=== PATIENT | female | born 1955 | race Caucasian/White ===

== ENCOUNTER 2017-01-02 14:40 | Emergency (ER) | payer OTHER ==
[2017-01-02 14:46] VITALS: RESP 18; O2SAT 96
[2017-01-02] MEDS ORDERED: ALTEPLASE 2 MG VIAL IVP PRN (15:38)
--- NOTE | 2017-01-02 16:28 | EDPHY ---
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 Patient states this she noticed that she had a nail infection a week ago. She was given a prescription for Keflex but told not to start it unless she develops signs of infection. She noticed some redness in her right forearm yesterday and started the Keflex at that time. The redness spread upper right arm. She was sent in by her doctor for evaluation of possible cellulitis failing oral antibiotics. Patient also was sent in for rule out of DVT. Denies any fevers or chills. No new numbness or weakness. Does states her arm is more swollen than normal. Otherwise feels in her normal state of health. ROS: 10 point Review of Systems is negative except as noted in the HPI. PMH: Breast cancer status post right axillary lymph node dissection chronic lymphedema Allergies: No known drug allergies Social History: No smoking, no alcohol, no recreational drug use Family History: non-contributory Physical Exam: Gen: Awake, Alert, No Distress HEENT: Nose: no rhinorrhea Eyes: PERRLA, EOMI Mouth: Moist mucosa Neck: Supple, no JVD Ext: She has right arm 2+ edema with erythema on the volar aspect of her right forearm with streaking up to her right upper arm. It is warm to the touch. It is mildly tender. Skin: See right forearm Neuro: CN II-XII intact, Sensation grossly intact, Strength 5/5 in bilateral upper and lower extremities - Personal History Current Tetanus/Diphtheria Vaccine: Yes Current Tetanus Diphtheria and Acellular Pertussis (TDAP): Yes Tetanus Vaccine Date: < 10 - Medical/Surgical History Hx Asthma: No Hx Chronic Respiratory Disease: Yes Hx Diabetes: Yes Hx Cardiac Disease: No Hx Renal Disease: No Hx Cirrhosis: No Hx Alcoholism: No Hx HIV/AIDS: No Hx Splenectomy or Spleen Trauma: No Other PMH: BREAST CA, R MASTECTOMY, HTN, THRYOID, ARTHRITIS. Possible metastasis of CA to bone per Son, bowel resection, GI hemorrhage. - Social History Smoking Status: Never smoked Constitutional: Initial Vital Signs Temperature (C) 36.4 C 01/02/17 14:41 Heart Rate 63 01/02/17 14:41 Respiratory Rate 18 01/02/17 14:41 Blood Pressure 159/81 H 01/02/17 14:41 O2 Sat (%) 96 01/02/17 14:41 O2 Delivery Mode Room Air Allergies/Adverse Reactions: No Known Allergies Allergy (Verified 03/17/15 19:33) Home Medications: Medication Instructions Recorded Cholecalciferol Vit D3 [Vitamin D3 5,000 units PO DAILY 09/10/13 (*)] Gabapentin [Neurontin 300 MG (*)] 600 mg PO HS 09/10/13 Herbals/Supplements -Info Only 1 each PO AD 09/10/13 Levothyroxine [Synthroid 75 mcg 75 mcg PO DAILY 09/10/13 (*)] Pantoprazole Sodium [Protonix 40mg 40 mg PO DAILY 09/10/13 (*)] Venlafaxine Xr [Effexor Xr 75MG 75 mg PO DAILY 09/10/13 (*)] Zinc Gluconate [Elemental Zinc] 30 mg PO DAILY 09/10/13 Anastrozole [Arimidex 1 mg (*)] 1 mg PO DAILY 11/04/15 Ascorbic Acid [C-500] 500 mg PO DAILY 11/04/15 Gabapentin [Neurontin 100 MG (*)] 100 mg PO DAILY 11/04/15 HYDROmorphone HCL [Dilaudid 2 mg 2 mg PO Q6 PRN 11/04/15 (*)] Lidocaine 5% [Lidoderm 5% Patch 1 ea TD DAILY 11/04/15 (*)] Losartan Potassium [Cozaar] 100 mg PO DAILY 11/04/15 Potassium Cl [Klor-Con 10 meq (RX)] 10 meq PO DAILY 11/04/15 Acetaminophen [Tylenol 325mg (*)] 325 - 650 mg PO Q6 PRN #0 tab 11/25/15 Docusate Sodium [Colace 100 MG (*)] 100 mg PO BID #0 cap 11/25/15 HYDROcodone/APAP 10/325 [[place] 1 - 2 tab PO Q6 PRN #0 tab 11/25/15 10/325 (*)] celeCOXIB [Celebrex (*)] 200 mg PO DAILY #0 cap 11/25/15 Medical Decision Making - Diagnostics Imaging Results: Imaging Impressions Extremity Venous Study 01/02/17 15:18 Impression: No deep venous thrombosis right arm. Findings and recommendations discussed with Emergency Department physician, Elvin Garcia MD at 16:20 hour, 01/02/2017. Final report concurs with initial preliminary interpretation. Imaging: Discussed imaging studies w/ shoes hand sewer Radiologist ED Course/Re-evaluation: I have discussed the patient with Dr. Sully Gallardo, infectious disease doctor. She agrees with the plan for IV antibiotics here. She would like ceftriaxone. She also like a CBC ordered this time. No other blood work indicated. Patient has a negative ultrasound for DVT. Because of difficulty with IV access of PICC line has been ordered. Dr. Gallardo office will contact the patient for re- evaluation tomorrow. Departure - Departure Disposition: Home, Routine, Self-Care Clinical Impression: Cellulitis Condition: Good Instructions: Cellulitis (ED) Additional Instructions: Follow up with Dr. Gallardo tomorrow. Her office will call you to arrange for an appointment. The redness might spread on your forearm. Return to the emergency department for fevers or chills, weakness, fainting, chest pain, shortness of breath, or any other concerns. Referrals: PADMA HANSEN [Primary Care Provider] - As per Instructions Sully Gallardo MD [Medical Doctor] - As per Instructions
[2017-01-02 17:11] LABS: % IMMATURE GRANULYOCYTES 0.2 % (0.0-1.1); ABSOLUTE IMMATURE GRANULOCYTES 0.01 10^3/uL (0.00-0.10); ADD DIFF? NO; ADD MORPH? NO; ADD SCAN? NO; ATYPICAL LYMPHOCYTE FLAG 10 (0-99); FRAGMENT RBC FLAG 0 (0-99); HEMATOCRIT 36.8 % (38.0-47.0); HEMOGLOBIN 12.7 g/dL (12.6-16.3); LEFT SHIFT FLG 0 (0-99); LIPEMIA HEMOLYSIS FLAG 90 (0-99); MEAN CELL HEMOGLOBIN 32.1 pg (27.9-34.1); MEAN CELL HEMOGLOBIN CONCENTR. 34.5 g/dL (32.4-36.7); MEAN CELL VOLUME 92.9 fL (81.5-99.8); MEAN PLATELET VOLUME 9.9 fL (8.7-11.7); PLATELET CLUMPS FLAG 0 (0-99); PLATELET COUNT 205 10^3/uL (150-400); RED BLOOD CELL COUNT 3.96 10^6/uL (4.18-5.33); RED CELL DISTRIBUTION WIDTH 12.2 % (11.5-15.2)
[2017-01-02] MEDS ORDERED: ACETAMINOPHEN 500 MG TAB PO ONE (17:29)
[2017-01-02 17:47] VITALS: BP 163/105; PULSE 60; TEMP 98.1
== END 2017-01-02 17:47 | disposition home or self-care (01) ==
DX: L03.113 Cellulitis of right upper limb (principal); E11.9 Type 2 diabetes mellitus without complications; I10 Essential (primary) hypertension; Z85.3 Personal history of malignant neoplasm of breast; C50.911 Malignant neoplasm of unspecified site of right female breast
CPT/HCPCS: 77001; 93971; 96365; 99285; C1751; J0696

== ENCOUNTER → 2017-02-08 | Outpatient (CLI) | payer OTHER | LOC: FIMAGING 12:54 | PROVIDERS: ATTEND Internal Medicine Hematology & Oncology | DX: Z12.31 Encounter for screening mammogram for malignant neoplasm of breast (principal); Z85.3 Personal history of malignant neoplasm of breast; Z90.11 Acquired absence of right breast and nipple | CPT/HCPCS: G0202-52 ==

== ENCOUNTER → 2017-03-06 | Outpatient (CLI) | payer OTHER ==
[~2017-03-06] MED LIST: GADOBUTROL 10 ML VIAL IVP ONE
== END ==
LOC: FIMAGING 12:53
PROVIDERS: ATTEND Internal Medicine Hematology & Oncology
DX: Z85.3 Personal history of malignant neoplasm of breast (principal); Z96.641 Presence of right artificial hip joint; D25.9 Leiomyoma of uterus, unspecified
CPT/HCPCS: 72197; A9585

== ENCOUNTER → 2017-09-14 | Outpatient (CLI) | payer OTHER | LOC: BHFA 11:30 | PROVIDERS: ATTEND Internal Medicine | DX: R55 Syncope and collapse (principal) ==

== ENCOUNTER → 2018-02-05 | Outpatient (CLI) | payer OTHER | LOC: FIMAGING 12:50 | PROVIDERS: ATTEND Internal Medicine Hematology & Oncology | DX: Z12.31 Encounter for screening mammogram for malignant neoplasm of breast (principal); Z85.3 Personal history of malignant neoplasm of breast; Z90.11 Acquired absence of right breast and nipple ==

== ENCOUNTER → 2018-02-14 | Outpatient (CLI) | payer OTHER | LOC: FIMAGING 14:07 | PROVIDERS: ATTEND Internal Medicine Hematology & Oncology | DX: R51 Headache (principal); M50.31 Other cervical disc degeneration, high cervical region; M48.02 Spinal stenosis, cervical region; C50.919 Malignant neoplasm of unspecified site of unspecified female breast | CPT/HCPCS: 70553; 72156; A9585 ==

== ENCOUNTER → 2018-03-23 | Outpatient (CLI) | payer OTHER | LOC: FIMAGING 09:07 | PROVIDERS: ATTEND Psychiatry & Neurology Neurology | DX: M54.5 Low back pain (principal); M84.88 Other disorders of continuity of bone, other site; Z85.3 Personal history of malignant neoplasm of breast | CPT/HCPCS: 72157; A9585 ==

== ENCOUNTER → 2019-02-20 | Outpatient (CLI) | payer OTHER | LOC: FIMAGING 13:27 ==